=== PATIENT | male | born 1985 | race Caucasian/White ===

== ENCOUNTER 2018-11-03 11:52 | Emergency (ER) | payer MEDICAID ==
[2018-11-03] MEDS: LIDOCAINE 1%/EPI (1:100,000) (MDV) 20 ML INJ (13:21)
[2018-11-03] MEDS ORDERED: LIDOCAINE 1%/EPI (MDV) 50 ML INJ INJ (13:30)
== END 2018-11-03 14:56 | disposition home or self-care (01) ==
LOC: FTE 14:56
DX: S51.811A Laceration without foreign body of right forearm, initial encounter (principal); F17.210 Nicotine dependence, cigarettes, uncomplicated; W26.8XXA Contact with other sharp object(s), not elsewhere classified, initial encounter; Y92.89 Other specified places as the place of occurrence of the external cause
CPT/HCPCS: 12002; 99283-25